=== PATIENT | male | born 1985 | race Caucasian/White ===

== ENCOUNTER 2018-12-01 08:23 | Outpatient (CLI) | payer OTHER ==
[2018-12-01] MEDS ORDERED: IOTHALAMATE MEGLUMINE 50 ML VIAL ONE (08:42)
[2018-12-01] MEDS ORDERED: GADOPENTETATE DIMEGLUMINE 5 ML VIAL IVP ONE ×2 (08:43→09:55)
[2018-12-01] MEDS ORDERED: BUFFERED LIDOCAINE 10 ML SYRINGE ONE (08:43)
[2018-12-01] MEDS ORDERED: BUFFERED LIDOCAINE 10 ML SYRINGE IU ONE (09:55)
[2018-12-01] MEDS ORDERED: IOTHALAMATE MEGLUMINE 50 ML VIAL IVP ONE (09:55)
--- NOTE | 2018-12-01 13:13 | XRAY Report ---
Reason: UNSPECIFIED SUPERFICIAL INJURY OF LEFT SHOULDER Procedure Date: 12/01/2018 Accession Number: [id number] / [id number] Procedure: [place] - Arthrogram Needle Placement CPT Code: FULL RESULT: EXAM: LEFT SHOULDER ARTHROGRAPHIC INJECTION WITH FLUOROSCOPIC GUIDANCE EXAM DATE: 12/01/2018 09:40 AM. CLINICAL HISTORY: Unspecified superficial injury of left shoulder. COMPARISON: ARTHROGRAM SHOULDER LT 12/01/2018 9:23 AM. TECHNIQUE: The risks, benefits, and alternatives of the procedure were discussed with the patient. All questions were answered. Written and verbal consent were obtained. The glenohumeral joint was marked under fluoroscopy and prepped and draped in a sterile manner. Local anesthesia was performed with 1% lidocaine. A 22-gauge needle was then inserted into the glenohumeral joint. 10 mL of a solution containing 25% 1% lidocaine, 25% iodinated contrast, and a 1:200 dilution of gadolinium contrast in sterile saline was then injected. The needle was removed without immediate complication. Other: None. Fluoroscopy Time: 3 seconds. Number of Images: 8. FINDINGS: Bones and joints: No fracture or subluxation. Injection: Fluoroscopic images demonstrate needle placement and contrast in the glenohumeral joint. No contrast extravasation outside of the glenohumeral joint. IMPRESSION: Successful fluoroscopically guided arthrographic injection of the shoulder. RADIA
--- NOTE | 2018-12-02 11:17 | MRI Report ---
Reason: UNSPECIFIED SUPERFICIAL INJURY OF LEFT SHOULDER Procedure Date: 12/01/2018 Accession Number: [id number] / [id number] Procedure: MRI - Arthrogram Shoulder LT CPT Code: FULL RESULT: EXAM: LEFT SHOULDER MRI ARTHROGRAM WITH CONTRAST EXAM DATE: 12/01/2018 10:23 AM. CLINICAL HISTORY: Left shoulder injury. Sports related injury. COMPARISON: None. TECHNIQUE: Multiplanar, multisequence T1-weighted and fluid-sensitive sequences of the shoulder after an arthrographic injection of dilute gadolinium, dictated under a separate exam. Other: None. FINDINGS: Acromioclavicular Region: The acromion is type II. The acromioclavicular joint is unremarkable. The coracoacromial and coracoclavicular ligaments are intact. There is no contrast or fluid in the subacromial/subdeltoid bursa. Glenohumeral Region: No subluxation. No loose bodies. The articular cartilage is unremarkable. The glenohumeral ligaments and joint capsule are unremarkable. Bone Marrow: Nondisplaced avulsion fracture of the lesser tuberosity with marrow edema. Labrum: Mild blunting free edge posterior superior labrum, likely some degeneration. No extension of contrast into the substance of the labrum. Biceps Tendon: The long head of the biceps tendon and biceps arcadio are intact. Musculature/Rotator Cuff: The subscapularis, supraspinatus, infraspinatus, and teres minor tendons are intact. No edema or fatty atrophy. Other: The subcutaneous tissues are unremarkable. IMPRESSION: 1. Nondisplaced avulsion fracture lesser tuberosity of the humerus with marrow edema. 2. Mild degenerative fraying free edge posterior superior labrum. 3. No evidence of rotator cuff tear. RADIA
== END 2018-12-01 08:24 | disposition home or self-care (01) ==
LOC: DI 08:23
PROVIDERS: ATTEND General Practice
DX: S42.265A Nondisplaced fracture of lesser tuberosity of left humerus, initial encounter for closed fracture (principal)
CPT/HCPCS: 23350; 73222; 77002; Q9961

== ENCOUNTER 2019-09-11 11:40 | Outpatient (CLI) | payer OTHER ==
--- NOTE | 2019-09-11 10:55 | SLEEP CARE CONSULTATION ---
Information from patient questionnaire entered by Ellen Collins. I have reviewed and concur with the information entered by Ellen Collins. This document represents the service I personally performed and the decisions made by me, Davion Alcocer MD, [facility]. History of Present Illness Service Date and Time: 09/11/2019 1120 Reason for Visit: New patient, Previously diagnosed sleep apnea (AHI - 15.3 in 2016), sleep apnea on CPAP therapy, Re-establish care Chief Complaint: reports: Insomnia, Snoring Duration of Symptoms: many years Usual bedtime: 10 pm Time it takes to fall asleep: 25 mins Snores at night: Yes Toss, Turn, or Twitch while sleeping: Yes Recalls having dreams: No Usually gets out of bed at: 6 am Feels refreshed in the morning: No Sleepy or fatigued during the day: Yes Ever fallen asleep while driving: No Takes day naps: Yes Dreams during day naps: No Prior sleep studies: Yes Year and Where: 2016 - [facility] Additional HPI information: I had the pleasure of seeing Mr. Mehta today regarding obstructive sleep apnea- hypopnea. As you know, he is a 34 year old gentleman who was diagnosed with the sleep-disordered breathing here in 2016. The AHI was 15.3 with haresh oxygen saturation of 85%. He was prescribed a CPAP device set at 10 cmH2O. He uses every night and all night. The compliance data show usage in 179 out of the past 180 nights, averaging 7.6 hours a night. The residual AHI is 1.5 and average time in large leak per day is 21 minutes. He wears a ResMed Quattro full face mask. [facility] is his durable medical supplier but he has not gotten any supplies for a while and would like to switch to [facility] in [place]. He finds the treatment very helpful especially with his migraine headache. However, he reports that the headache is becoming more frequent. - Parasomnia Symptoms Ever been unable to move upon waking from sleep: No Ever felt weak in the knees when startled or emotional: No Bothered by creepy, crawly, restless sensations in legs: No Problems with memory or concentration: No CPAP Compliance Data - Data Reviewed with Patient Average duration of nightly device use: 7.7 Compliance rate %: 97.2 (180 days) Current pressure setting (cmH2O): 10 Humidity settin Heated hose settin Average residual AHI: 1.5 Average large leak: 21 min 31 sec Subjective Initial [place] Sleepiness Scale score: 18 (in 2016) Current [place] Sleepiness Scale score: 11 Social History The patient's occupation is a . Patient is Single and lives in [place]. Have you smoked in the past 12 months: No Alcohol use: Yes Alcohol amount and frequency: 1-2 drinks rarely Caffeine use: Yes Caffeine amount and frequency: everyday Family History Family history of sleep disordered breathing: Yes Allergies and Home Medications Drug allergies reviewed: Yes Home medication list reviewed: Yes Review of Systems Weight loss over past 5 years: 15 Gastrointestinal: reports: heartburn Physical Exam Height: 5 ft 8 in Weight: 195 lb Body Mass Index: 29.6 BMI Classification: Overweight Impression and Plan IMPRESSION: 1. Obstructive Sleep Apnea-Hypopnea Syndrome, moderate, as previously diagnosed. The patient has had good treatment compliance. The current pressure setting appears effective and comfortable. The patient experiences improvement on the treatment. He would like to try a higher setting to see if it would help with the migraine headache. I will raise it to 12 cmH2O. A new prescription for supplies will also be issued for him to switch durable medical supplier. Plan: 1. CPAP raised to 12 cmH2O via the modem. 2. Try newer full face masks 3. Prescription for supplies faxed to [facility]. 4. Attempt to lose weight. 5. Return for a follow up in 2 months. Visit Type: Telehealth Video Video Type: iWantoo Patient Location: Home Location of Provider: Home Patient agrees and consents to this telehealth visit type: Yes Patient agrees to have their insurance billed: Yes Time Spent with Patient (minutes): 15 Provider Statement: I spent 100% of the Telehealth Video Call with the patient with greater than 50% spent counseling the patient and coordination of care.
== END 2019-09-11 11:41 | disposition home or self-care (01) ==
LOC: SC 11:40
PROVIDERS: ATTEND Internal Medicine Pulmonary Disease
DX: G47.33 Obstructive sleep apnea (adult) (pediatric) (principal); E66.3 Overweight; Z68.29 Body mass index [BMI] 29.0-29.9, adult

== ENCOUNTER 2019-12-25 09:51 | Outpatient (CLI) | payer OTHER ==
--- NOTE | 2019-12-25 10:49 | SLEEP CARE CONSULTATION ---
Information from patient questionnaire entered by Ellen Collins. I have reviewed and concur with the information entered by Ellen Collins. This document represents the service I personally performed and the decisions made by me, Davion Alcocer MD, [facility]. History of Present Illness Service Date and Time: 12/25/2019 0951 Previous diagnosis: Moderate, Obstructive Sleep Apnea-Hypopnea Syndrome AHI: 15.3 (in 2016) Reason for follow up: three month (with pressure change) Equipment type: CPAP Equipment obtained from: [facility] Mask style: Full face Prior sleep studies: Yes Year and Where: 2015 - [facility] Type of Sleep Study: Polysomnography HPI additional information: HPI: Mr. Mehta is a 34 year old gentleman who was diagnosed with the sleep- disordered breathing here in 2016. The AHI was 15.3 with haresh oxygen saturation of 85%. He is using a CPAP set at 12 cmH2O. He recently switched to a ResMed AirTouch F-20 full face mask and likes it a lot. He continues to use the device every night and all night. The compliance data show usage 30 nights out of the past 30 nights, averaging 7.7 hours a night. The > 4 hour compliance rate for the past 30 days is 100%. He complains of no particular problem with the device such as soreness on the face, dry nose, epistaxis, nasal congestion or headache. He thinks that the pressure of 12 cmH2O is comfortable. On the CPAP therapy he notices improvement in his sleep quality, and that he wakes up feeling fresher in the morning and more awake/alert during the day. His notices no snore at all. [place] Sleepiness Scale score is 5. The average residual AHI is 1.6; and average time in large leak per day is 10 minutes a night. Sleep Study - Results Prior sleep studies: Yes Year and Where: 2015 - [facility] CPAP Compliance Data - Data Reviewed with Patient Average duration of nightly device use: 7.6 Compliance rate %: 93.3 Current pressure setting (cmH2O): 12 Humidity settin Heated hose settin Average residual AHI: 1.6 Average large leak: 10 min 12 sec Subjective Initial [place] Sleepiness Scale score: 18 (in 2016) Allergies and Home Medications Drug allergies reviewed: Yes Home medication list reviewed: Yes Review of Systems Review of systems same as previous: Yes Physical Exam Vital signs obtained and entered by: Detailed physical exam is deferred because the Coronavirus epidemic. Height: 5 ft 8 in Impression and Plan IMPRESSION: 1. Obstructive Sleep Apnea-Hypopnea Syndrome, moderate, as previously diagnosed. The patient has had good treatment compliance. The current pressure setting appears effective and comfortable. His mask fits well. The patient experiences improvement on the treatment. No further adjustment is necessary. Plan: 1. Leave CPAP at 12 cmH2O. 2. Try newer full face masks as they become available. 3. Attempt to lose weight. 4. Follow up with a sleep physician in [place], [place] where he is relocating to. Follow up with Sleep Care in: as needed Visit Type: In Office Time Spent with Patient (minutes): 15 Provider Statement: I spent 100% of the Face to Face Visit with the patient with greater than 50% spent counseling the patient and coordination of care.
== END 2019-12-25 09:52 | disposition home or self-care (01) ==
LOC: SC 09:51
PROVIDERS: ATTEND Internal Medicine Pulmonary Disease
DX: G47.33 Obstructive sleep apnea (adult) (pediatric) (principal)
CPT/HCPCS: 99212; 99213